=== PATIENT | male | born 1970 | race Caucasian/White ===

== ENCOUNTER 2018-09-27 23:38 | Emergency (ER) | payer BC, MEDICAID ==
[~2018-09-27] VITALS: Wt 120.6 kg
[~2018-09-27 23:38] MED LIST: IBUP800T48; PERCOCET; celebrex
[2018-09-27 23:40] VITALS: BP 201/115; PULSE 77; RESP 18
[2018-09-28] MEDS ORDERED: IBUP-1542 PO (00:58)
[2018-09-28] MEDS ORDERED: AMOX1TAB10 PO (00:58)
[2018-09-28] MEDS ORDERED: IBUPROFEN 600 MG TAB PO ONE (01:00)
[2018-09-28] MEDS ORDERED: HYDROCODONE/APAP (10/325) TAB PO ONE (01:00)
--- NOTE | 2018-09-28 01:49 | ERD ---
ER Documentation Chief Complaint Chief Complaint DENTAL PAIN X'S 2 DAYS HPI This is a 47-year-old male who presents ED with complaints of dental pain times 2 days. Patient denies fever, chills, chest pain, shortness breath, trouble breathing, headache, worst headache of life, abdominal pain, nausea, vomiting, diarrhea, constipation or other symptoms. No known drug allergies ROS All systems reviewed and are negative except as per history of present illness. Medications Home Meds Active Scripts Amoxicillin/Potassium Clav (Amox-Clav 875-125 mg Tablet) 875-125 mg Tab, 1 TAB PO BID for 10 Days, #20 TAB Prov:RICK PEARL PA-C 09/28/18 Ibuprofen* (Motrin*) 600 Mg Tab, 600 MG PO Q6, #30 TAB Prov:RICK PEARL PA-C 09/28/18 Reported Medications [celebrex] No Conflict Check 03/30/14 Oxycodone Hcl/Acetaminophen (Percocet) 1 Tab Tab 12/10/10 Ibuprofen* (Motrin*) 800 Mg Tab 12/10/10 Allergies Allergies: Coded Allergies: No Known Drug Allergy (Verified Allergy, Mild, 09/28/18) PMhx/Soc History of Surgery: No Anesthesia Reaction: No Hx Neurological Disorder: No Hx Respiratory Disorders: No Hx Cardiac Disorders: No Hx Psychiatric Problems: No Hx Miscellaneous Medical Probl: Yes (herniated disk) Hx Alcohol Use: Yes (occassionally) Hx Substance Use: Yes Hx Tobacco Use: No Smoking Status: Current every day smoker FmHx Family History: No diabetes Physical Exam Vitals Vital Signs Date Temp Pulse Resp B/P (MAP) Pulse Ox O2 O2 Flow FiO2 Time Delivery Rate 09/27/18 97.3 77 18 201/115 94 23:40 (143) Physical Exam Const: No acute distress Head: Atraumatic Eyes: Normal Conjunctiva ENT: Normal External Ears, Nose and Mouth. Tenderness to percussion of tooth #2, no fluctuant mass palpated in mouth, poor dentition Neck: Full range of motion. No meningismus. Resp: Clear to auscultation bilaterally Cardio: Regular rate and rhythm, no murmurs Ext: No cyanosis, or edema Neur: Awake and alert Psych: Normal Mood and Affect Results 24 hrs Current Medications Medications Dose Sig/Addis Start Time Status Last (Trade) Ordered Route PRN Stop Time Admin Dose Reason Admin 1 tab ONCE ONCE 09/28/18 DC 09/28/18 Acetaminophen PO 01:00 01:05 / 09/28/18 01:01 Hydrocodone Bitart (Clinton ([id number])) Ibuprofen 600 mg ONCE ONCE 09/28/18 DC 09/28/18 (Motrin) PO 01:00 01:05 09/28/18 01:01 Procedures/MDM ER COURSE: The patient was given [Cl[place] and ibuprofen The medication was well tolerated and the patient reports improvement in symptoms. The patient was stable throughout ED course. I kept the patient and/or family informed of laboratory and diagnostic imaging results throughout the emergency room course. The patient was promptly evaluated and a treatment plan was devised based on H&P and other data. This plan was discussed with the patient who agreed and had no further questions or concerns prior to discharge. MEDICAL DECISION MAKIN-year-old male presents ED with dental pain. No evidence of drainable abscess. At this time there is no dental emergency. History and physical examination other data can not consistent with emergent processes including but not limited to deep tracking infection, Brandin's, retropharyngeal abscess, peritonsillar abscess, sepsis, meningitis. Patient has an elevated blood pressure in the emergency department today. Discussed this with patient and he states that it is due to pain right now. I advised patient that he needs follow-up with his primary care physician as he may need to be placed on blood pressure medications. There are no symptoms of hypertensive emergency. Vitals are stable and patient can be managed with close outpatient follow-up. Patient was advised to follow-up with [facility] dentistry in the next 48 hours. Patient was also advised to follow-up with her primary care in the next 48 hours. Return to ED with any worsening symptoms. DISPOSITION PLAN: We discussed follow up with the patient's primary care doctor within 24 to 48 hours. Patient counseled regarding my diagnostic impression and care plan. Prior to discharge all questions answered. Pt agrees with treatment plan and understands strict return precautions. Precautionary instructions provided including instructions to return to the ER if not improving or for any worsening or changing symptoms or concerns. SPECIALIST FOLLOW UP RECOMMENDED: None Patient has been advised to follow up with primary care in 1-2 days. Disclaimer: Inadvertent spelling and grammatical errors are likely due to EHR/dictation software use and do not reflect on the overall quality of patient care. Also, please note that the electronic time recorded on this note does not necessarily reflect the actual time of the patient encounter. Blood Pressure Assessment: Patient's blood pressure was elevated (>120/80) but appears stable without evidence of hypertension emergency or urgency. The patient was counseled about the risks of hypertension and urged to pursue outpatient monitoring and therapy within a week with their primary care physician. Departure Diagnosis: Primary Impression: Tooth disease Condition: Stable Patient Instructions: Dental Pain, Dental Cavity Referrals: [facility] YOU HAVE RECEIVED A MEDICAL SCREENING EXAM AND THE RESULTS INDICATE THAT YOU DO NOT HAVE A CONDITION THAT REQUIRES URGENT TREATMENT IN THE EMERGENCY DEPARTMENT. FURTHER EVALUATION AND TREATMENT OF YOUR CONDITION CAN WAIT UNTIL YOU ARE SEEN IN YOUR DOCTORS OFFICE WITHIN THE NEXT 1-2 DAYS. IT IS YOUR RESPONSIBILITY TO MAKE AN APPOINTMENT FOR FOLOW-UP CARE. IF YOU HAVE A PRIMARY DOCTOR --you should call your primary doctor and schedule an appointment IF YOU DO NOT HAVE A PRIMARY DOCTOR YOU CAN CALL OUR PHYSICIAN REFERRAL HOTLINE AT IF YOU CAN NOT AFFORD TO SEE A PHYSICIAN YOU CAN CHOSE FROM THE FOLLOWING [facility] [address] [facility] [facility] [address] [facility] [facility] [address] [facility] [facility] [address] [facility] [facility] [address] [facility]. [facility]. [address] [facility] ([facility] walk in clinic) Additional Instructions: Patient was advised to follow-up with dentistry first thing tomorrow morning. Patient advised to return to the ED immediately for new or worsening symptoms. Patient advised to follow up with primary care provider in the next 24-48 hours. Patient verbalized understanding and agrees with treatment plan and course of action. If patient has no primary care they may follow up with one of the [facility] clinics listed on the following page or one of the options listed below [facility] + [address] [place] [address] or [facility] [address] [place] [address] or [facility] [address] [place] [address] RICK PEARL PA-C Sep 28, 2018 01:49
== END 2018-09-28 01:49 | disposition home or self-care (01) ==
LOC: FTE 23:38
DX: K08.9 Disorder of teeth and supporting structures, unspecified (principal); F17.210 Nicotine dependence, cigarettes, uncomplicated
CPT/HCPCS: 99283; Z7610